=== PATIENT | female | born 1980 | race Caucasian/White ===

== ENCOUNTER → 2016-11-18 | Outpatient (CLI) | payer OTHER ==
[~2016-11-18] VITALS: Ht 157.5 cm; Wt 90.7 kg
[~2016-11-18] MED LIST: NS IV SCH; VEDOLIZUMAB IV SCH
--- OUTSIDE RECORDS SUMMARY | 2016-11-18 08:54 | XMS REPORT | Continuity of Care Document ---
Author Author [facility] Organization [facility] Address Unknown Phone Unavailable Care Team Providers Care Clay Mixer Name Role Phone Kindra Henderson PCP [phone] Source Comments Some departments are not documenting in the electronic medical record. If you do not see the information that you expected, contact Release of Information in the Health Information Management department at [phone] for further assistance in locating additional records.[facility] Active Allergies and Adverse Reactions No Known Allergies Current Medications Prescription Sig. Disp. Refills Start End Date Status Date citalopram (CELEXA) 20 mg Take 20 mg by mouth Active tablet daily. montelukast (SINGULAIR) Take 10 mg by mouth every Active 10 mg tablet morning. Dexlansoprazole Take by mouth daily. Active (DEXILANT) 60 mg CpDM Folic Acid 800 mcg Tab Take by mouth daily. Active Fish Oil-[place]-3 Fatty Take by mouth daily. Active Acids (FISH OIL) 360-1,200 mg CpDR cholecalciferol (Vitamin Take 1,000 Units by mouth Active D3) (VITAMIN D-3) 1,000 daily. units tablet PV W-O LUANA/FERROUS Take by mouth daily. Active FUMARATE/FA (M-VIT PO) norgestimate-ethinyl Take 1 Tab by mouth Active estradiol(+) (ORTHO daily. TRI-VINVEE38; VXVFRGWO74; TRI-NCIXRBEC18; TRI-WDLUYEXE33) tablet hydrocortisone Insert or Apply 1 Enema 28 Bottle 3 09/15/20 Active (CORTENEMA) 100 mg/60 mL to rectal area as 13 enema directed every 12 hours. predniSONE (DELTASONE) 5 prednisone 30 mg X 2 200 Tab 1 11/11/19 Active mg tablet weeks, then taper down 5 14 mg every week. hydrocortisone-pramoxine Insert or Apply 1 1 Container 6 11/16/19 Active (PROCTOFOAM HC) 1-1 % Applicator to rectal area 14 rectal foam as directed every 12 hours. mesalamine(+) (CANASA) Insert or Apply 1 30 5 01/07/20 Active 1,000 mg supp Suppository to rectal Suppository 14 area as directed at bedtime daily. Mesalamine (LIALDA) 1.2 Take 4 Tabs by mouth 120 Tab 5 08/09/20 Active gram tablet daily. 14 Active Problems Problem Noted Date Leucocytosis 12/02/2013 Overview: 12/03/13: previous history of leukocytosis and neutrophilia WBC now normalized as has neutrophils Currently on steroids, tapering from 40 mg and is taking [address] 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 Will need to continue to monitor after prednisone taper is complete. GERD (gastroesophageal reflux disease) 04/28/2013 UC (ulcerative colitis) ([facility]) 04/28/2013 Overview: 12/03/13: currently under the care of GI, on steroids IBS (irritable bowel syndrome) 04/28/2013 Obesity 04/28/2013 Depression 04/28/2013 Diarrhea 04/28/2013 Sinusitis 04/28/2013 Pharyngitis 04/28/2013 Social History Tobacco Use Types Packs/Day Years Used Date Never Smoker Cigarettes Alcohol Use Drinks/Week oz/Week Comments Yes 0-1 Cans of 0.0 - 0.6 beer Last Filed Vital Signs Vital Sign Reading Time Taken Blood Pressure 130/81 12/29/2013 3:19 PM FINISHING PAN OPERATOR Pulse 77 12/29/2013 3:19 PM FINISHING PAN OPERATOR Temperature 36.6 C (97.9 F) 12/29/2013 3:19 PM FINISHING PAN OPERATOR Respiratory Rate 16 12/29/2013 3:19 PM FINISHING PAN OPERATOR Height 1.549 m (5' 1") 12/29/2013 3:19 PM FINISHING PAN OPERATOR Weight 94.257 kg (207 lb 12.8 12/29/2013 3:19 PM FINISHING PAN OPERATOR oz) Body Mass Index 39.28 12/29/2013 3:19 PM FINISHING PAN OPERATOR Oxygen Saturation 96% 12/03/2013 10:56 AM FINISHING PAN OPERATOR Plan of Care Health Maintenance Due Date Last Done Comments Physical (Comprehensive) 1986 Exam Pertussis Vaccine 1990 Tetanus Vaccine 1996 Cervical Cancer Screening 2000 Influenza Vaccine 07/04/2016 Results from Last 3 Months Not on file
[2016-11-18 08:56] VITALS: BP 125/82
== END ==
LOC: SDC 08:50
PROVIDERS: ATTEND Family Medicine
DX: K51.90 Ulcerative colitis, unspecified, without complications (principal)
CPT/HCPCS: 96365

== ENCOUNTER → 2017-01-13 | Outpatient (CLI) | payer OTHER ==
[~2017-01-13] VITALS: Ht 157.5 cm; Wt 90.7 kg
[~2017-01-13] MED LIST changes: +NORMAL SALINE IV SCH
--- OUTSIDE RECORDS SUMMARY | 2017-01-13 10:16 | XMS REPORT | Continuity of Care Document ---
Author Author [facility] Organization [facility] Address Unknown Phone Unavailable Care Team Providers Care Benefits Consulting Analyst Name Role Phone Kindra Henderson PCP [phone] Source Comments Some departments are not documenting in the electronic medical record. If you do not see the information that you expected, contact Release of Information in the Health Information Management department at [phone] for further assistance in locating additional records.[facility] Active Allergies and Adverse Reactions No Known [...] Tab Take by mouth daily. Active Fish Oil-[place]-3 Fatty Take by mouth daily. Active Acids (FISH OIL) 360-1,200 mg CpDR cholecalciferol (Vitamin Take 1,000 Units by mouth Active D3) (VITAMIN D-3) 1,000 daily. units tablet PV W-O LUANA/FERROUS Take by mouth daily. Active FUMARATE/FA (M-VIT PO) norgestimate-ethinyl Take 1 Tab by mouth Active estradiol(+) (ORTHO daily. TRI-[id number]; DEBAPYIG11; TRI-XHPSVABH28; TRI-VBMUZCQU18) tablet hydrocortisone Insert or Apply 1 Enema [...] (gastroesophageal reflux disease) 04/28/2013 UC (ulcerative colitis) ([facility]) 04/28/2013 Overview: 12/03/13: currently under the care [...] Taken Blood Pressure 130/81 12/29/2013 3:19 PM MOUNT LOADER Pulse 77 12/29/2013 3:19 PM MOUNT LOADER Temperature 36.6 C (97.9 F) 12/29/2013 3:19 PM MOUNT LOADER Respiratory Rate 16 12/29/2013 3:19 PM MOUNT LOADER Height 1.549 m (5' 1") 12/29/2013 3:19 PM MOUNT LOADER Weight 94.257 kg (207 lb 12.8 12/29/2013 3:19 PM MOUNT LOADER oz) Body Mass Index 39.28 12/29/2013 3:19 PM MOUNT LOADER Oxygen Saturation 96% 12/03/2013 10:56 AM MOUNT LOADER Plan of Care Health Maintenance Due Date Last Done Comments Physical (Comprehensive) 1986 Exam Pertussis Vaccine 1990 Tetanus Vaccine 1996 Cervical Cancer Screening 2000 Influenza Vaccine 07/04/2016 Results from Last 3 Months Not on file
[2017-01-13 11:15] VITALS: BP 122/78
== END ==
LOC: SDC 10:12
PROVIDERS: ATTEND Family Medicine
DX: K51.90 Ulcerative colitis, unspecified, without complications (principal)
CPT/HCPCS: 96365

== ENCOUNTER → 2017-03-10 | Outpatient (CLI) | payer OTHER ==
[~2017-03-10] VITALS: Ht 157.5 cm; Wt 90.7 kg
[~2017-03-10] MED LIST changes: -NORMAL SALINE IV SCH; -NS IV SCH; +VEDOLIZUMAB 300 MG/NS 250 ML IVPB IV SCH; -VEDOLIZUMAB IV SCH
[2017-03-10 11:13] VITALS: BP 132/82
== END ==
LOC: SDC 09:58
PROVIDERS: ATTEND Family Medicine
DX: K51.90 Ulcerative colitis, unspecified, without complications (principal)
CPT/HCPCS: 96365

== ENCOUNTER → 2017-05-05 | Outpatient (CLI) | payer OTHER ==
[~2017-05-05] VITALS: Ht 157.5 cm; Wt 90.7 kg
[2017-05-05 10:02] VITALS: BP 143/83
== END ==
LOC: SDC 09:56 → EDSTATUS 10:00
PROVIDERS: ATTEND Family Medicine
DX: K51.90 Ulcerative colitis, unspecified, without complications (principal)
CPT/HCPCS: 96365

== ENCOUNTER 2017-06-30 10:19 | Outpatient (CLI) | payer OTHER ==
[~2017-06-30] VITALS: Ht 157.5 cm; Wt 90.7 kg
[2017-06-30] MEDS ORDERED: VEDOLIZUMAB 300 MG/NS 250 ML IVPB IV SCH ×2 (10:45)
[2017-06-30 11:40] VITALS: BP 110/67
== END 2017-06-30 11:40 | disposition home or self-care (01) ==
LOC: SDC 10:19
PROVIDERS: ATTEND Family Medicine
DX: K51.90 Ulcerative colitis, unspecified, without complications (principal)
CPT/HCPCS: 96365

== ENCOUNTER → 2017-08-25 | Outpatient (CLI) | payer OTHER ==
[~2017-08-25] VITALS: Ht 157.5 cm; Wt 90.7 kg
[2017-08-25 11:25] VITALS: BP 114/74
== END ==
LOC: SDC 10:11
PROVIDERS: ATTEND Family Medicine
DX: K51.90 Ulcerative colitis, unspecified, without complications (principal)

== ENCOUNTER → 2017-12-15 | Outpatient (CLI) | payer OTHER ==
[~2017-12-15] VITALS: Ht 157.5 cm; Wt 90.7 kg
[2017-12-15 10:15] VITALS: BP 124/80
== END ==
LOC: SDC 09:58
PROVIDERS: ATTEND Family Medicine
DX: K51.90 Ulcerative colitis, unspecified, without complications (principal)
CPT/HCPCS: 96365

== ENCOUNTER → 2018-02-09 | Outpatient (CLI) | payer OTHER ==
[~2018-02-09] VITALS: Ht 157.5 cm; Wt 90.7 kg
[2018-02-09 14:20] VITALS: BP 139/77
== END ==
LOC: SDC 13:00
PROVIDERS: ATTEND Family Medicine
DX: K51.90 Ulcerative colitis, unspecified, without complications (principal)

== ENCOUNTER → 2018-04-06 | Outpatient (CLI) | payer OTHER ==
[~2018-04-06] VITALS: Ht 157.5 cm; Wt 90.7 kg
[2018-04-06 14:02] VITALS: BP 123/71
== END ==
LOC: SDC 12:55
PROVIDERS: ATTEND Family Medicine
DX: K51.90 Ulcerative colitis, unspecified, without complications (principal)
CPT/HCPCS: 96365

== ENCOUNTER → 2018-06-01 | Outpatient (CLI) | payer OTHER ==
[~2018-06-01] VITALS: Ht 157.5 cm; Wt 90.7 kg
[2018-06-01 12:50] VITALS: BP 115/73
[2018-06-01 13:45] VITALS: BP 115/73
== END ==
LOC: SDC 12:42
PROVIDERS: ATTEND Family Medicine
DX: K51.90 Ulcerative colitis, unspecified, without complications (principal)
CPT/HCPCS: 96365

== ENCOUNTER → 2018-07-27 | Outpatient (CLI) | payer OTHER ==
[~2018-07-27] VITALS: Ht 157.5 cm; Wt 90.7 kg
[2018-07-27 13:20] VITALS: BP 126/68
== END ==
LOC: SDC 12:58
PROVIDERS: ATTEND Family Medicine
DX: K51.90 Ulcerative colitis, unspecified, without complications (principal)
CPT/HCPCS: 96365

== ENCOUNTER 2018-09-21 12:52 | Outpatient (CLI) | payer OTHER ==
[~2018-09-21] VITALS: Ht 157.5 cm; Wt 90.7 kg
[2018-09-21 13:10] VITALS: BP 123/71
[2018-09-21] MEDS ORDERED: VEDOLIZUMAB 300 MG/NS 250 ML IVPB IV SCH ×2 (13:15)
== END 2018-09-21 14:15 | disposition home or self-care (01) ==
LOC: SDC 12:52
PROVIDERS: ATTEND Family Medicine
DX: K51.90 Ulcerative colitis, unspecified, without complications (principal)
CPT/HCPCS: 96365; J3380

== ENCOUNTER → 2018-11-16 | Outpatient (CLI) | payer OTHER ==
[~2018-11-16] VITALS: Ht 157.5 cm; Wt 90.7 kg
[2018-11-16 13:45] VITALS: BP 114/74
== END ==
LOC: SDC 12:42
PROVIDERS: ATTEND Family Medicine
DX: K51.90 Ulcerative colitis, unspecified, without complications (principal)
CPT/HCPCS: 96365; J3380

== ENCOUNTER → 2019-01-11 | Outpatient (CLI) | payer OTHER ==
[~2019-01-11] VITALS: Ht 157.5 cm; Wt 90.7 kg
[~2019-01-11] MED LIST changes: +VEDOLIZUMAB 300 MG/NS 250 ML IVPB IV NR; -VEDOLIZUMAB 300 MG/NS 250 ML IVPB IV SCH
[2019-01-11 14:31] VITALS: BP 123/71
== END ==
LOC: SDC 12:43
PROVIDERS: ATTEND Family Medicine
DX: K51.90 Ulcerative colitis, unspecified, without complications (principal)
CPT/HCPCS: 96365; J3380

== ENCOUNTER 2019-05-04 12:51 | Outpatient (CLI) | payer OTHER ==
[~2019-05-04] VITALS: Ht 157.5 cm; Wt 90.7 kg
[2019-05-04 13:15] VITALS: BP 116/77
[2019-05-04] MEDS ORDERED: VEDOLIZUMAB 300 MG/NS 250 ML IVPB IV SCH ×2 (13:15)
== END 2019-05-04 14:16 | disposition home or self-care (01) ==
LOC: SDC 12:51
PROVIDERS: ATTEND Family Medicine
DX: K51.90 Ulcerative colitis, unspecified, without complications (principal)
CPT/HCPCS: 96365; J3380

== ENCOUNTER → 2019-07-02 | Outpatient (CLI) | payer OTHER ==
[~2019-07-02] VITALS: Ht 157.5 cm; Wt 90.7 kg
[~2019-07-02] MED LIST changes: -VEDOLIZUMAB 300 MG/NS 250 ML IVPB IV NR; +VEDOLIZUMAB 300 MG/NS 250 ML IVPB IV SCH
[2019-07-02 13:06] VITALS: BP 122/74
[2019-07-02 14:30] VITALS: BP 122/74
== END ==
LOC: SDC 12:52
PROVIDERS: ATTEND Family Medicine
DX: K51.90 Ulcerative colitis, unspecified, without complications (principal)
CPT/HCPCS: 96365; J3380

== ENCOUNTER → 2019-08-27 | Outpatient (CLI) | payer OTHER ==
[~2019-08-27] VITALS: Ht 157 cm; Wt 90.0 kg
[2019-08-27 14:29] VITALS: BP 137/82
== END ==
LOC: SDC 13:00
PROVIDERS: ATTEND Family Medicine
DX: K51.90 Ulcerative colitis, unspecified, without complications (principal)
CPT/HCPCS: 96365; J3380

== ENCOUNTER → 2019-10-22 | Outpatient (CLI) | payer OTHER ==
[~2019-10-22] VITALS: Ht 157.5 cm; Wt 90.0 kg
[2019-10-22 14:00] VITALS: BP 119/75
== END ==
LOC: SDC 12:56
PROVIDERS: ATTEND Family Medicine
DX: K51.90 Ulcerative colitis, unspecified, without complications (principal)
CPT/HCPCS: 96365; J3380

== ENCOUNTER 2020-03-13 13:03 | Outpatient (RCR) | payer OTHER ==
[2019-12-17 13:40] VITALS: BP 118/71
[~2020-03-13] VITALS: Ht 157.5 cm; Wt 90.0 kg
[2020-03-13 13:05] VITALS: BP 106/74
[2020-03-13] MEDS ORDERED: VEDOLIZUMAB 300 MG/NS 250 ML IVPB IV SCH ×2 (13:15)
== END 2020-03-16 | disposition home or self-care (01) ==
LOC: SDC 13:03
PROVIDERS: ATTEND Family Medicine
DX: K51.90 Ulcerative colitis, unspecified, without complications (principal)
CPT/HCPCS: 96365; J3380

== ENCOUNTER 2020-05-08 12:51 | Outpatient (RCR) | payer OTHER ==
[2020-05-08] MEDS ORDERED: VEDOLIZUMAB 300 MG/NS 250 ML IVPB IV SCH ×2 (13:15)
[2020-05-08 13:58] VITALS: BP 116/78
== END 2020-05-08 13:58 | disposition home or self-care (01) ==
LOC: SDC 12:51
PROVIDERS: ATTEND Family Medicine
DX: K51.90 Ulcerative colitis, unspecified, without complications (principal)
CPT/HCPCS: 96365; J3380

== ENCOUNTER 2020-07-04 12:52 | Outpatient (CLI) | payer OTHER ==
[2020-07-04 12:55] VITALS: BP 114/69
[2020-07-04] MEDS ORDERED: VEDOLIZUMAB 300 MG/NS 250 ML IVPB IV SCH ×2 (13:15)
== END 2020-07-04 14:00 | disposition home or self-care (01) ==
LOC: SDC 12:52
PROVIDERS: ATTEND Family Medicine
DX: K51.90 Ulcerative colitis, unspecified, without complications (principal)
CPT/HCPCS: 96365; J3380

== ENCOUNTER 2020-08-28 12:49 | Outpatient (RCR) | payer OTHER ==
[~2020-08-28] VITALS: Ht 157.5 cm; Wt 90.0 kg
[2020-08-28] MEDS ORDERED: VEDOLIZUMAB 300 MG/NS 250 ML IVPB IV SCH ×2 (12:58)
[2020-08-28 13:55] VITALS: BP 112/66
== END 2020-08-28 13:55 | disposition home or self-care (01) ==
LOC: SDC 12:49
PROVIDERS: ATTEND Family Medicine
DX: K51.90 Ulcerative colitis, unspecified, without complications (principal)
CPT/HCPCS: 96365; J3380

== ENCOUNTER 2020-12-22 08:02 | Outpatient (CLI) | payer OTHER ==
[2020-12-22] MEDS ORDERED: VEDOLIZUMAB 300 MG/NS 250 ML IVPB IV SCH ×2 (08:12)
[2020-12-22 09:30] VITALS: BP 116/73
== END 2020-12-22 09:30 | disposition home or self-care (01) ==
LOC: SDC 08:02
PROVIDERS: ATTEND Family Medicine
DX: K51.90 Ulcerative colitis, unspecified, without complications (principal)
CPT/HCPCS: 96365; J3380

== ENCOUNTER 2021-02-16 08:00 | Outpatient (CLI) | payer OTHER ==
[2021-02-16] MEDS ORDERED: VEDOLIZUMAB 300 MG/NS 250 ML IVPB IV SCH ×2 (08:15)
== END 2021-02-16 09:05 | disposition home or self-care (01) ==
LOC: SDC 08:00
PROVIDERS: ATTEND Family Medicine
DX: K51.90 Ulcerative colitis, unspecified, without complications (principal)
CPT/HCPCS: 96365

== ENCOUNTER 2021-04-13 07:51 | Outpatient (CLI) | payer OTHER ==
[2021-04-13] MEDS ORDERED: VEDOLIZUMAB 300 MG/NS 250 ML IVPB IV SCH ×2 (08:30)
[2021-04-13 09:01] VITALS: BP 108/70
== END 2021-04-13 09:06 | disposition home or self-care (01) ==
LOC: SDC 07:51 → EDSTATUS 08:00 → SDC 09:06
PROVIDERS: ATTEND Family Medicine
DX: K51.90 Ulcerative colitis, unspecified, without complications (principal)
CPT/HCPCS: 96365; J3380

== ENCOUNTER → 2021-06-08 | Outpatient (CLI) | payer OTHER ==
[2021-06-08 08:05] VITALS: BP 114/72
== END ==
LOC: SDC 07:57
PROVIDERS: ATTEND Family Medicine
DX: K51.90 Ulcerative colitis, unspecified, without complications (principal)
CPT/HCPCS: 96365; J3380

== ENCOUNTER 2021-08-10 08:02 | Outpatient (CLI) | payer OTHER ==
[~2021-08-10] VITALS: Wt 98.0 kg
[2021-08-10 08:15] VITALS: BP 102/72
[2021-08-10] MEDS ORDERED: VEDOLIZUMAB 300 MG/NS 250 ML IVPB IV SCH ×2 (08:30)
== END 2021-08-10 09:15 ==
LOC: SDC 08:02
PROVIDERS: ATTEND Family Medicine
DX: K51.90 Ulcerative colitis, unspecified, without complications (principal)
CPT/HCPCS: 96365; J3380

== ENCOUNTER → 2021-10-05 | Outpatient (CLI) | payer OTHER ==
[~2021-10-05] VITALS: Ht 165.1 cm; Wt 98.0 kg
[2021-10-05 09:10] VITALS: BP 132/68
== END ==
LOC: SDC 07:47
PROVIDERS: ATTEND Family Medicine
DX: K51.90 Ulcerative colitis, unspecified, without complications (principal)
CPT/HCPCS: 96365; J3380

== ENCOUNTER 2021-11-30 08:12 | Outpatient (RCR) | payer OTHER ==
[~2021-11-30] VITALS: Ht 165.1 cm; Wt 98.0 kg
[2021-11-30] MEDS ORDERED: VEDOLIZUMAB 300 MG/NS 250 ML IVPB IV SCH ×2 (08:30)
[2021-11-30 09:15] VITALS: BP 120/71
== END 2021-12-03 | disposition home or self-care (01) ==
LOC: SDC 08:12
PROVIDERS: ATTEND Family Medicine
DX: K51.90 Ulcerative colitis, unspecified, without complications (principal)
CPT/HCPCS: 96365; J3380

== ENCOUNTER 2022-02-01 07:53 | Outpatient (RCR) | payer OTHER ==
[2022-02-01 08:00] VITALS: BP 115/72
[2022-02-01] MEDS ORDERED: VEDOLIZUMAB 300 MG/NS 250 ML IVPB IV SCH ×2 (08:00)
== END 2022-03-02 | disposition home or self-care (01) ==
LOC: SDC 07:53
PROVIDERS: ATTEND Family Medicine
DX: K51.90 Ulcerative colitis, unspecified, without complications (principal)
CPT/HCPCS: 96365; J3380

== ENCOUNTER 2022-03-29 07:51 | Outpatient (RCR) | payer OTHER ==
[2022-03-29 08:05] VITALS: BP 119/68
[2022-03-29] MEDS ORDERED: VEDOLIZUMAB 300 MG/NS 250 ML IVPB IV SCH ×2 (08:15)
== END 2022-04-02 | disposition home or self-care (01) ==
LOC: SDC 07:51
PROVIDERS: ATTEND Family Medicine
DX: K51.90 Ulcerative colitis, unspecified, without complications (principal)
CPT/HCPCS: 96365; J3380

== ENCOUNTER 2022-05-24 07:52 | Outpatient (RCR) | payer OTHER ==
[~2022-05-24] VITALS: Wt 98.0 kg
[2022-05-24] MEDS ORDERED: VEDOLIZUMAB 300 MG/NS 250 ML IVPB IV SCH ×2 (08:15)
[2022-05-24 08:20] VITALS: BP 108/63
== END 2022-06-02 | disposition home or self-care (01) ==
LOC: SDC 07:52
PROVIDERS: ATTEND Family Medicine
DX: K51.90 Ulcerative colitis, unspecified, without complications (principal)
CPT/HCPCS: 96365; J3380

== ENCOUNTER → 2022-08-02 | Outpatient (RCR) | payer OTHER ==
[2022-08-02 12:40] VITALS: BP 112/67
[2022-08-02 12:45] VITALS: BP 112/67
== END ==
LOC: SDC 12:31
PROVIDERS: ATTEND Family Medicine
DX: K51.90 Ulcerative colitis, unspecified, without complications (principal)
CPT/HCPCS: 96365; J3380

== ENCOUNTER 2022-09-30 10:03 | Outpatient (RCR) | payer OTHER ==
[~2022-09-30] VITALS: Ht 157.5 cm; Wt 98.0 kg
[2022-09-30] MEDS ORDERED: VEDOLIZUMAB 300 MG/NS 250 ML IVPB IV SCH ×2 (10:30)
[2022-09-30 10:41] VITALS: BP 115/75
== END 2022-10-02 | disposition home or self-care (01) ==
LOC: SDC 10:03
PROVIDERS: ATTEND Family Medicine
DX: K51.90 Ulcerative colitis, unspecified, without complications (principal)
CPT/HCPCS: 96365; J3380

== ENCOUNTER 2022-11-25 10:14 | Outpatient (RCR) | payer OTHER ==
[~2022-11-25] VITALS: Wt 98.0 kg
[2022-11-25 10:17] VITALS: BP 102/47
[2022-11-25] MEDS ORDERED: DENOSUMAB 60 MG/1 ML (PROLIA) SQ SCH (11:00)
[2022-11-25] MEDS ORDERED: VEDOLIZUMAB 300 MG/NS 250 ML IVPB IV SCH ×2 (11:00)
== END 2022-12-03 | disposition home or self-care (01) ==
LOC: SDC 10:14
PROVIDERS: ATTEND Family Medicine
DX: K51.90 Ulcerative colitis, unspecified, without complications (principal)
CPT/HCPCS: 96365; J3380

== ENCOUNTER 2023-01-20 07:51 | Outpatient (RCR) | payer OTHER ==
[~2023-01-20] VITALS: Ht 154 cm; Wt 88.0 kg
[2023-01-20 08:08] VITALS: BP 104/63
[2023-01-20] MEDS ORDERED: VEDOLIZUMAB 300 MG/NS 250 ML IVPB IV SCH ×2 (08:15)
== END 2023-01-31 | disposition home or self-care (01) ==
LOC: SDC 07:51
PROVIDERS: ATTEND Family Medicine
DX: K51.90 Ulcerative colitis, unspecified, without complications (principal)
CPT/HCPCS: 96365; J3380

== ENCOUNTER → 2023-03-17 | Outpatient (CLI) | payer OTHER ==
[~2023-03-17] VITALS: Ht 154 cm; Wt 81.0 kg
[2023-03-17 08:23] VITALS: BP 101/57
== END ==
LOC: SDC 07:48
PROVIDERS: ATTEND Family Medicine
DX: K51.90 Ulcerative colitis, unspecified, without complications (principal)
CPT/HCPCS: 96365; J3380

== ENCOUNTER 2023-05-12 07:40 | Outpatient (RCR) | payer OTHER ==
[2023-05-12] MEDS ORDERED: VEDOLIZUMAB 300 MG/NS 250 ML IVPB IV SCH ×2 (08:00)
[2023-05-12 08:15] VITALS: BP 94/62
== END 2023-05-12 08:42 | disposition home or self-care (01) ==
LOC: SDC 07:40
PROVIDERS: ATTEND Family Medicine
DX: K51.90 Ulcerative colitis, unspecified, without complications (principal)
CPT/HCPCS: J3380

== ENCOUNTER → 2023-09-02 | Outpatient (RCR) | payer OTHER ==
[~2023-09-02] VITALS: Ht 160 cm; Wt 81.0 kg
[2023-09-02 07:45] VITALS: BP 103/59
[2023-09-02 09:11] VITALS: BP 103/59
== END | disposition home or self-care (01) ==
LOC: SDC 07:47
PROVIDERS: ATTEND Family Medicine
DX: K51.90 Ulcerative colitis, unspecified, without complications (principal)
CPT/HCPCS: 96365; J3380